=== PATIENT | male | born 1980 | race Caucasian/White ===

== ENCOUNTER 2017-04-15 19:49 | Emergency (ER) | payer OTHER ==
[~2017-04-15] VITALS: Ht 182.9 cm; Wt 86.2 kg
[2017-04-15 20:08] VITALS: BP 163/106
[2017-04-15] MEDS ORDERED: FLUORESCEIN OPHTH TEST STRIP. OD ONE (20:30)
[2017-04-15] MEDS ORDERED: TETRACAINE 0.5% OPHTH SOLUTION 4ML BOTTLE. OD ONE (20:30)
[2017-04-15] MEDS ORDERED: HYDR-971 PO (21:04)
[2017-04-15] MEDS ORDERED: ERYT1OIN6 OP (21:04)
--- NOTE | 2017-04-15 21:05 | PHYS DOC ---
Past Medical History Past Medical History: No Pertinent History Past Surgical History: No Surgical History Additional Information: 1.5 PACKS/DAY Alcohol Use: Heavy Additional Information: 6PK/NIGHT Drug Use: None Adult General Chief Complaint Chief Complaint: EYE PROBLEMS HPI HPI Patient is a 37 year old male presents the ED complaining of foreign body to right eye X 1 day. Patient states he was grinding metal and working on his truck and felt a piece go in his eye yesterday. States he flushed his eye but thinks its still in there. Describes the pain as uncomfortable. Rates the pain as 5 out of 10. Tetanus up-to-date. Denies vision changes, fever, nausea/ vomiting, headache, photophobia, weakness or dizziness. Review of Systems Review of Systems Constitutional: Denies fever or chills [] Eyes: Complains of eye pain. Denies change in visual acuity, redness. [] HENT: Denies nasal congestion or sore throat [] Respiratory: Denies cough or shortness of breath [] Cardiovascular: No additional information not addressed in HPI [] GI: Denies abdominal pain, nausea, vomiting, bloody stools or diarrhea [] : Denies dysuria or hematuria [] Musculoskeletal: Denies back pain or joint pain [] Integument: Denies rash or skin lesions [] Neurologic: Denies headache, focal weakness or sensory changes [] Endocrine: Denies polyuria or polydipsia [] Current Medications Current Medications Current Medications Medications (Trade) Dose Ordered Sig/Charles Start Time Stop Time Status Last Admin Dose Admin Fluorescein Sodium (Ful-Vandana) 1 strip 1X ONCE 04/15/17 20:30 04/15/17 20:31 DC 04/15/17 20:36 1 STRIP Tetracaine HCl (Tetracaine) 1 drop 1X ONCE 04/15/17 20:30 04/15/17 20:31 DC 04/15/17 20:36 1 DROP Allergies Allergies Allergies Coded Allergies Type Severity Reaction Last Updated Verified No Known Drug Allergies 04/15/17 No Physical Exam Physical Exam Constitutional: Well developed, well nourished, no acute distress, non-toxic appearance. [] HENT: Normocephalic, atraumatic, bilateral external ears normal, oropharynx moist, no oral exudates, nose normal. [] Eyes: RIGHT EYE METAL FOREIGN BODY. PERRLA, EOMI, conjunctiva normal, no discharge. [] Neck: Normal range of motion, no tenderness, supple, no stridor. [] Cardiovascular:Heart rate regular rhythm, no murmur [] Lungs & Thorax: Bilateral breath sounds clear to auscultation [] Abdomen: Bowel sounds normal, soft, no tenderness, no masses, no pulsatile masses. [] Skin: Warm, dry, no erythema, no rash. [] Back: No tenderness, no CVA tenderness. [] Extremities: No tenderness, no cyanosis, no clubbing, ROM intact, no edema. [] Neurologic: Alert and oriented X 3, normal motor function, normal sensory function, no focal deficits noted. [] Psychologic: Affect normal, judgement normal, mood normal. [] Current Patient Data Vital Signs Vital Signs Date Time Temp Pulse Resp B/P (MAP) Pulse Ox O2 Delivery O2 Flow Rate FiO2 04/15/17 20:08 97.8 78 18 98 Room Air 97.8 EKG EKG [] Radiology/Procedures Radiology/Procedures [] Course & Med Decision Making Course & Med Decision Making Pertinent Labs and Imaging studies reviewed. (See chart for details) []Partial removal of foreign body to right eye. Visual acuity WNL. Discussed case with on-call cigar head stringer, Dr. Sanford. Will see in office tomorrow to remove rest of foreign body at 9am. Tetanus is up-to-date. Will discharge with analgesics for pain and erythromycin ointment per opthamology. Provided contact information for follow-up. Discussed the importance of follow-up tomorrow at 9 AM. Discussed reasons to return to the ED. Patient understands and agrees with plan. Dragon Disclaimer Dragon Disclaimer This electronic medical record was generated, in whole or in part, using a voice recognition dictation system. Departure Departure Impression: Primary Impression: Eye foreign body Disposition: 01 HOME, SELF-CARE Condition: IMPROVED Referrals: NO PCP (PCP) MANOJ SANFORD MD Patient Instructions: Eye - Foreign Body Scripts Erythromycin Base (Erythromycin) 1 Gm Oint...g. 1 GM OP 6XDAY for 7 Days, #1 MISC APPLY 1 CM RIBBON IN RIGHT EYE UP TO 6X PER DAY. Prov: BASILIO PANDYA 04/15/17 Hydrocodone/Apap 5-325 (NORCO 5-325 TABLET) 1 Each Tablet 1 TAB PO TID, #6 TAB Prov: BASILIO PANDYA 04/15/17 BASILIO PANDYA Apr 15, 2017 21:04
== END 2017-04-15 21:11 | disposition home or self-care (01) ==
LOC: ER 19:49
DX: T15.91XA Foreign body on external eye, part unspecified, right eye, initial encounter (principal); F17.210 Nicotine dependence, cigarettes, uncomplicated; Y93.89 Activity, other specified; Y99.8 Other external cause status; Y92.89 Other specified places as the place of occurrence of the external cause
CPT/HCPCS: 65205; 99284-25